=== PATIENT | male | born 1960 | race Caucasian/White ===

== ENCOUNTER → 2017-08-11 11:45 | Emergency (ER) | payer BC ==
[~2017-08-11 11:45] MED LIST: LORazepam INJ* 2 MG/ML 1 ML VIAL IV PUSH ONE; LORazepam INJ* 2 MG/ML 1 ML VIAL ONE; Morphine VIAL* 4 MG/ML VIAL (1 ml vial) IV ONE; NS 0.9% 1000 ML* 1,000 ML IV ONE
--- NOTE | 2017-08-11 12:38 | RAD ---
INDICATION: Evaluate pneumothorax status post right-sided chest tube placement COMPARISON: Chest x-ray acquired at 1139 hours prior to tube placement TECHNIQUE: Single AP portable view of the chest was obtained. FINDINGS: There is been near complete interval resolution of the chest tube. Again seen is subcutaneous gas overlying the superior right hemithorax. The chest tube appears to be appropriately position with the tip terminating overlying the lateral aspect of the right upper lobe. The degree of apparent mediastinal shift is normal to prior chest x-rays consistent with this history of left lobectomy. IMPRESSION: Interval resolution of right-sided pneumothorax status post chest tube placement.
[2017-08-11 12:45] LABS: Hematocrit 41 % (42-52); Hemoglobin 13.9 g/dl (14.0-18.0); Mean Corpuscular HGB Conc 34 g/dl (31-36); Mean Corpuscular Hemoglobin 32 pg (27-31); Mean Corpuscular Volume 94 fL (80-94); Mean Platelet Volume 8.4 um3 (7.4-10.4); Platelet Count 148 10^3/ul (150-450); Red Blood Count 4.29 10^6/ul (4.0-5.4); Red Cell Distribution Width 14 % (10.5-15); White Blood Count 5.4 10^3/ul (3.5-10.8)
[2017-08-11 13:03] LABS: EGFR Non-African American 141.1 (>60)
--- NOTE | 2017-08-11 13:15 | BRIEFOPN ---
Brief Operative Note - Surgery Procedures: Date of Service: 08/11/17 Procedure: Bedside chest tube placement to the right hemithorax Indication: Enlarging pneumothorax status post right upper lobe lung biopsy with tachycardia and chest pain Anesthesia: 1% lidocaine injected locally. The patient received Ativan 1 mg IV as well as 4 mg IV morphine. Procedure note: The patient consented for chest tube placement at the time of consent for the right lung biopsy. In the ER, the patient was mildly sedated. The right anterior chest was cleansed with chlorhexidine and the right upper chest was draped with a sterile drape. Standard sterile protocol including Mask, gloves and sterile gown were employed. Utilizing palpation for guidance, an 8 Malagasy catheter was inserted into the anterior upper right hemithorax according to the trocar technique. The needle was removed and utilizing a 3-way stopcock and 60 mL syringe approximately 500 cc of air was evacuated from the pleural space. The tube was sealed with a 3-way stopcock and tubing and dynamic valve for attached. With the Heimlich valve in place to 3-way stopcock was open to the hemisphere. The skin around the chest tube was sutured with a "pursestring" suture to minimize air leak and at the suture was attached to the 8 Malagasy chest tube with a "Radhames sandal" suture. The site was dressed with sterile gauze and Tegaderm. The patient tolerated the procedure without incident. Subsequently follow-up portable chest x-ray showed near complete resolution of the pneumothorax. Summary: Bedside placement of an 8 Malagasy chest tube placed in the superior anterior right pleural space with successful evacuation of pneumothorax. Plan: 1. The patient will be discharged with a chest tube in place with instructions to keep the chest to attached to a Heimlich valve. 2. Follow-up chest x-ray tomorrow as an outpatient. 3. Follow-up in the interventional radiology clinic Friday.
[2017-08-11 14:01] LABS: ABS Basophils 0 10^3/ul (0-0.2); ABS Eosinophils 0 10^3/ul (0-0.6); ABS Lymphocytes 0.8 10^3/ul (1.0-4.8); ABS Monocytes 0.5 10^3/ul (0-0.8); ABS Neutrophils 4.2 10^3/ul (1.5-7.7); ABS Nucleated RBC 0 10^3/ul; Nucleated Red Blood Cells % 0.1
[2017-08-11 14:05] LABS: Monocytes % 6 % (0-7)
--- NOTE | 2017-08-11 14:53 | PN ---
Progress Note - Progress Note Date of Service: 08/11/17 SOAP: Subjective: Patient seen & examined after right upper, anterior chest 8 Armenian chest tube placement Denies pain or SOB other than discomfort of chest tube. Wants to eat and wants to go home. Sister Suma at bedside. Objective: Selected Entries 08/11/17 08/11/17 12:08 12:51 Temperature 98.9 F Heart Rate 64 Respiratory 17 Rate Blood Pressure 140/66 (mmHg) Blood Pressure 78 Mean O2 Sat by Pulse 100 Oximetry NAD, AAO x 3 RRR, S1/S2 Vesicular breath sounds with faint right lower crackles Dressing over chest tube is CDI No significant tenderness when pressing tube exit site CXR acquired at 1430 hours 1 after wall suction removed and Heimlich valve only in place shows no recurrent PTX and appropriately positioned chest tube. Assessment: 56 yom s/p 8 Armenian right upper chest tube placement due to PTX after RUL nodule biopsy. PTX has remained resolved with Heimlich valve only and patient appears to be asymptomatic and hemodynamically stable. Plan: 1. Okay to D/C to home with chest tube in place. 2. Follow up CXR tomorrow, 08/12/17 3. Patient will follow up with IR clinic 08/13/17 (IR will call with exact time). 4. The chest tube will remain in place with the Heimlich valve in place. The patient and his sister were shown the operation of the 3 way valve and tubing connection. They were also advised to keep gauze attached to distal tip of valve to collect serious drainage that can collect in the tubing.
--- NOTE | 2017-08-11 14:56 | RAD ---
INDICATION: Follow-up right-sided pneumothorax 1 hour after chest tube was removed from wall suction and connected to Heimlich valve COMPARISON: Most recent comparison chest x-ray from the same date acquired at 1221 hours TECHNIQUE: PA and lateral views of the chest were obtained. FINDINGS: Again seen is the right upper chest tube with the tip terminating overlying the lateral right upper thorax. Trace pneumothorax is questionably identified at the right lung apex. There remains a small degree of right to left mediastinal shift related to the patient's history of left lobectomy. Postsurgical changes include surgical clips overlying the left mediastinum as well as prior rib fractures versus osteotomies. IMPRESSION: NEAR COMPLETE RESOLUTION OF RIGHT-SIDED PNEUMOTHORAX WITH PERSISTENT SUBCUTANEOUS GAS OVERLYING THE RIGHT ANTERIOR CHEST. THIS IMAGE WAS ACQUIRED 1 HOUR AFTER WALL SUCTION WAS REMOVED AND THE PATIENT WAS ATTACHED TO A HEIMLICH VALVE ONLY.
[2017-08-11 15:34] VITALS: BP 124/70
--- NOTE | 2017-08-12 00:53 | ED ---
Michelle Marquez Elizabeth, scribed for Isis Schaefer MD on 08/11/17 at 1204 . Shortness of Breath - HPI Summary HPI Summary: This patient is a 56 year old M presenting to [facility] with a chief complaint of increasing shortness of breath since this morning. [place] [facility] [place] when a pneumothorax was revealed in radiology post-procedure. The patient was then brought to [facility] for monitoring and chest tube placement. 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 Patient has hx of alcoholism. The patient rates the pain 2/10 in severity. Symptoms aggravated by nothing. Symptoms alleviated by nothing. Patient reports nonproductive cough. In room, patient's HR was 120, BP was 112/ 100, and SPO2 was 100 on 100% O2. - History of Current Complaint Hx Obtained From: Patient, Other: - Dr. Ruby, Dr. Jang, Dr. Rangel Onset/Duration: Sudden Onset, Lasting Minutes, Still Present Timing: Constant Current Severity: Moderate Dyspnea At: Rest Aggrevating Factors: Nothing Alleviating Factors: Nothing Associated Signs & Symptoms: Cough (Nonproductive) - Allergy/Home Medications Allergies/Adverse Reactions: Allergies Allergy/AdvReac Type Severity Reaction Status Date / Time No Known Allergies Allergy Verified 08/11/17 09:01 PMH/Surg Hx/FS Hx/Imm Hx Previously Healthy: No - hx chronic alcoholism Endocrine/Hematology History: Denies: Hx Diabetes Respiratory History: Reports: Hx Lung Cancer, Other Respiratory Problems/ Disorders - lung nodule bx on right today 08/11/17 Opthamlomology History: Denies: Hx Legally Blind EENT History: Denies: Hx Deafness Psychiatric History: Reports: Hx Substance Abuse - EtOH - Cancer History Cancer Type, Location and Year: Squamous cell left lung CA, 2016 - Surgical History Surgery Procedure, Year, and Place: lung biopsy today 08/11/17 Infectious Disease History: No - Family History Known Family History: Positive: Cardiac Disease, Hypertension, Other - cancer - Social History Alcohol Use: Daily Alcohol Amount: 6 beers daily Substance Use Type: Reports: None Smoking Status (MU): Current Every Day Smoker Type: Cigarettes Review of Systems Negative: Fever Negative: Epistaxis Cardiovascular: Negative Positive: Shortness Of Breath Negative: Vomiting Skin: Negative Positive: Headache Psychological: Normal All Other Systems Reviewed And Are Negative: Yes Physical Exam - Summary Physical Exam Summary: Appearance: Ill-appearing, moderate pain distress, thin Skin: Warm, color reflects adequate perfusion, dry Head: Normal Head/Face inspection, atraumatic Eyes: Conjunctiva clear ENT: Normal inspection Neck: Supple, no nodes, no JVD Respiratory: Decreased breath sounds on the right, no respiratory distress on 100% O2, no accessory muscles of respiration Cardio: Tachycardic, regular rhythm, No murmur, pulses normal, brisk capillary refill Abdomen: Soft, nontender Bowel sounds: Present Musculoskeletal: Strength Intact/ROM intact, no calf tenderness, no edema. Psychological: Anxious Neuro: Alert, muscle tone normal, no focal deficit Triage Information Reviewed: Yes Vital Signs On Initial Exam: Initial Vitals Resp 22 08/11/17 11:49 Vital Signs Reviewed: Yes Diagnostics - Vital Signs Vital Signs Resp 08/11/17 11:56 20 08/11/17 11:49 22 - Laboratory Lab Results: Lab Results 08/11/17 08/11/17 08/11/17 Range/Units 12:33 12:34 12:34 WBC 5.4 (3.5-10.8) 10^3/ul RBC 4.29 (4.0-5.4) 10^6/ul Hgb 13.9 L (14.0-18.0) g/dl Hct 41 L (42-52) % MCV 94 (80-94) fL MCH 32 H (27-31) pg MCHC 34 (31-36) g/dl RDW 14 (10.5-15) % Plt Count 148 L (150-450) 10^3/ul MPV 8.4 (7.4-10.4) um3 Neut % (Auto) Pending Lymph % (Auto) Pending [place] % (Auto) Pending Eos % (Auto) Pending Baso % (Auto) Pending Absolute Neuts (auto) Pending Absolute Lymphs (auto) Pending Absolute Monos (auto) Pending Absolute Eos (auto) Pending Absolute Basos (auto) Pending Absolute Nucleated RBC Pending Nucleated RBC % Pending Sodium 130 L (139-145) mmol/L Potassium 4.1 (3.5-5.0) mmol/L Chloride 95 L (101-111) mmol/L Carbon Dioxide 26 (22-32) mmol/L Anion Gap 9 (2-11) mmol/L BUN 4 L (6-24) mg/dL Creatinine 0.59 L (0.67-1.17) mg/dL Est GFR ( Amer) 181.5 (>60) Est GFR (Non-Af Amer) 141.1 (>60) BUN/Creatinine Ratio 6.8 L (8-20) Glucose 85 (70-100) mg/dL Lactic Acid 1.0 (0.5-2.0) mmol/L Calcium 9.4 (8.6-10.3) mg/dL Magnesium 1.7 L (1.9-2.7) mg/dL Total Bilirubin 0.80 (0.2-1.0) mg/dL AST 101 H (13-39) U/L ALT 61 H (7-52) U/L Alkaline Phosphatase 98 (34-104) U/L C-Reactive Protein < 1.00 (< 5.00) mg/L Total Protein 6.8 (6.4-8.9) g/dL Albumin 4.1 (3.2-5.2) g/dL Globulin 2.7 (2-4) g/dL Albumin/Globulin Ratio 1.5 (1-3) Result Diagrams: 08/11/17 12:34 08/11/17 12:33 Lab Statement: Any lab studies that have been ordered have been reviewed, and results considered in the medical decision making process. - Radiology CXR Xray Interpretation: No Acute Changes - IMPRESSION: Interval resolution of right-sided pneumothorax status post chest tube placement. Dr. Schaefer has reviewed this report. Radiology Interpretation Completed By: Radiologist - EKG 12:11 Cardiac Rate: NL - at 77 bpm EKG Rhythm: Sinus Rhythm EKG Interpretation: nml AV IV CT, nml ATC, nml axis, no acute changes Re-Evaluation - Re-Evaluation First Eval Re-Evaluation Time: 13:30 Change: Improved Comment: Resps unlabored. Sister is with pt. Pt has been drinking water without problem. Is his usual self per sister. BP 116/82. P 66. O2 sat on room air 98%. Lungs with good aeration bilaterally. Dr. Jang present giving pt and sister Suma DC instructions. Course/Dx - Course Course Of Treatment: Patient with prior left lung CA, was [place] [facility] [place] right lung module biopsy when a pneumothorax was revealed in radiology. Chest tube indicated per Dr. Jang for enlarging PTX post procedure. Conscious sedation was performed due to patients anxiety and wish for pain control during the procedure of chest tube placement. I was present the bedside during the whole procedure, per conscious sedation protocol. Dr. Jang placed an 8 Cambodian chest tube in the right anterior chest without incident after time out procedure was completed. Discussed care of patient with Dr. Meyers, surgeon , at 12:00 and he was made aware of patients presence in the ED. Conscious sedation protocol paperwork completed. An EKG reveals sinus rhythm at 77 bpm with nml AV IV CT, nml ATC, nml axis, no acute changes. There is no prior EKG to compare to. CXR after chest tube reveals, per radiologist, interval resolution of right-sided pneumothorax status post chest tube placement. ED physician has reviewed this radiology report. Lab work done, showing mild anemia , elevated LFT's, no coagulopathy. 30 minutes of critical care time were performed. In the ED course the patient was given Morphine, Lorazepam, and IV fluids. Patient will be discharged home with conscious sedation instructions and is advised to follow up in am for repeat CXR and then in office with Dr. Jang in 2 days. The patient is agreeable with this plan. - Diagnoses Differential Diagnosis/HQI/PQRI: Positive: Pneumothorax Provider Diagnoses: Pneumothorax, Encounter for chest tube placement, Lung nodule, Personal history of lung cancer - Physician Notifications Discussed Care of Patient With: Pradeep Meyers Time Discussed With Above Provider: 12:00 Instructed by Provider To: Other - Dr. Jang present with pt in ED, places chest tube. Per Dr. Jang, also discussed patient care with Dr. Meyers, surgeon, who was made aware of patient's presence in the ED. Also discussed with Dr. Rangel who advises pt may be DC'd if PTX is diminished with chest tube. - Critical Care Time Critical Care Time: 30-74 min - 30 minutes Discharge - Sign-Out/Discharge Documenting (check all that apply): Discharge/Admit/Transfer - home - Discharge Plan Condition: Stable Disposition: HOME Patient Education Materials: Spontaneous Pneumothorax (ED), Moderate Sedation ( ED) Referrals: Eva Rangel MD [Primary Care Provider] - Radhames Jang MD [Medical Doctor] - 2 Days Additional Instructions: Return tomorrow for an outpatient chest xray. Come to the registration desk and ask for outpatient imaging. Dr. Jang who placed your chest tube will see you in his office at [address], [address] on Fri. Return to the ER if any new or worsening symptoms. - Billing Disposition and Condition Condition: STABLE Disposition: Home The documentation as recorded by the Michelle diego Elizabeth accurately reflects the service I personally performed and the decisions made by , Isis Schaefer MD.
== END | disposition home or self-care (01) ==
LOC: ED 11:45
DX: J93.9 Pneumothorax, unspecified (principal); R91.1 Solitary pulmonary nodule; D64.9 Anemia, unspecified; F17.210 Nicotine dependence, cigarettes, uncomplicated; Z85.118 Personal history of other malignant neoplasm of bronchus and lung
CPT/HCPCS: 32551; 36415; 71045; 71046; 80053; 83605; 83735; 85025; 85060; 86140; 96361; 96374; 96375; 99283; J2060